=== PATIENT | female | born 1990 | race Caucasian/White ===

== ENCOUNTER 2019-08-06 13:31 | Emergency (ER) | payer OTHER ==
[~2019-08-06] VITALS: Ht 180.3 cm; Wt 99.8 kg
[2019-08-06 15:11] VITALS: BP 141/70
== END 2019-08-06 15:12 | disposition home or self-care (01) ==
LOC: M.ERS 13:31
DX: S06.0X0A Concussion without loss of consciousness, initial encounter (principal); V49.88XA Car occupant (driver) (passenger) injured in other specified transport accidents, initial encounter; Y93.89 Activity, other specified; Y92.413 State road as the place of occurrence of the external cause; Y99.9 Unspecified external cause status